=== PATIENT | female | born 1995 | race Caucasian/White ===

== ENCOUNTER 2021-03-14 14:04 | Outpatient (REF) | payer OTHER, SELFPAY | END 2021-03-14 14:05 | disposition home or self-care (01) | LOC: HO.LNP 14:04 | PROVIDERS: Visit Provider Hospitalist | DX: Z20.822 Contact with and (suspected) exposure to COVID-19 (principal); J01.90 Acute sinusitis, unspecified | CPT/HCPCS: U0003; U0005 ==

== ENCOUNTER 2021-11-22 20:10 | Emergency (ER) | payer OTHER, SELFPAY ==
--- NOTE | ~2021-11-22 | XR_ITS ---
EXAMINATION: XR knee RT 4V CLINICAL INFORMATION: Pain COMPARISON: None TECHNIQUE: 4 views of the knee XR/XR knee RT 4V FINDINGS/IMPRESSION: No acute fracture or dislocation. Joint spaces are maintained. No joint effusion. Soft tissues are unremarkable.
[2021-11-22 20:49] VITALS: BP 146/46; PULSE 100; RESP 18; TEMP 36.4; O2SAT 98; BMI 46.7
--- NOTE | 2021-11-22 22:56 | ED_ITS ---
HPI - General Adult General Chief complaint: Extremity Injury, Lower Stated complaint: right knee swollen and painful Time Seen by Provider: 11/22/21 21:47 Source: patient Mode of arrival: ambulatory Limitations: no limitations History of Present Illness HPI narrative: 26 yold female with pmh of ACL tear of right knee presents to the ED for right knee pain. patient states she was reaching for somehting over the couch and heard something pop in her right knee and has flora unable to bear weight. patient denies falling to the ground or any direc contact trauma to knee Related Data Previous Rx's Medication Instructions Recorded azithromycin 500 mg tablet 500 mg PO DAILY 5 Days #5 tab 03/14/21 prednisone 20 mg tablet 20 mg PO .COMPLEX #18 tab 03/14/21 ketorolac 10 mg tablet 10 mg PO Q6H 5 Days #20 tab 11/22/21 prednisone 20 mg tablet 40 mg PO DAILY 5 Days #10 tab 11/22/21 Allergies Allergy/AdvReac Type Severity Reaction Status Date / Time cefazolin [CEFAZOLIN] Allergy Unknown RASH Verified 11/22/21 23:08 ciprofloxacin [From CIPRO] Allergy Unknown RASH Verified 11/22/21 23:08 Sulfa (Sulfonamide Allergy Unknown RASH Verified 11/22/21 23:08 Antibiotics) [SULFA (SULFONAMIDE ANTIBIOTICS)] lactose [LACTOSE] AdvReac Unknown STOMACH Verified 11/22/21 23:08 UPSET NSAIDS (Non-Steroidal AdvReac Unknown GI DISTRESS Verified 11/22/21 23:08 Anti-Inflamma [NSAIDS (NON-STEROIDAL ANTI-INFLAMMA] From AUGMENTIN Allergy Intermediate RASH Uncoded 08/31/21 13:40 Cefzil Allergy Unknown Rash Uncoded 11/22/21 23:08 Vantin Allergy Unknown Rash Uncoded 11/22/21 23:08 Review of Systems Review of Systems: Right knee pain. heard pop in knee Yes all other systems are reviewed and are negative [facility] Past Medical History Medical History (Updated 11/22/21 @ 23:35 by HAILEE Titus) No known health problems Surgical History (Updated 11/22/21 @ 20:51 by Harper Guerrero) No history of previous surgery Social History Social History (System 08/31/21 @ 13:40 by Estelle Nathan) Advance Directives: No Patient : No Physical Exam ED Vital Signs: Vital Signs - 24 hr 11/22/21 20:49 Temperature 97.6 F Pulse Rate 100 Respiratory Rate 18 Blood Pressure 146/46 H Pulse Oximetry 98 BMI result Body Mass Index 46.7 Const General: cooperative, healthy appearing, comfortable, no acute distress, well developed, alert, awake and Physically active Orientation/consciousness: patient oriented x3 [facility] Head: Yes normal to inspection, Yes No palpable skull fracture present, Yes normocephalic, Yes atraumatic and No abrasion Eyes General: appearance normal, both eyes and all related structures Neck Neck: Yes normal visual inspection, Yes full ROM, Yes no lymphadenopathy, Yes no meningeal signs, Yes trachea midline, Yes supple, No anterior neck swelling and No tender Chest Chest palpation & inspection: normal inspection of the chest and normal palpation of entire chest wall Resp Effort & Inspection: normal respiratory effort and able to speak in complete sentences Auscultation: clear to auscultation bilaterally Cardio Jugular venous distension: no JVD Heart sounds: S1 normal heart sound present and S2 normal heart sound present GI Inspection: Yes normal to inspection and No abdominal wall ecchymosis Palpation (GI): Soft to palpation, not firm, nontender, no guarding and not rigid General: No CVA tenderness and Yes no CVA tenderness Back/Spine/Pelvis Back: no CVA tenderness, No CVA tenderness and No back tenderness Skin General skin exam: no rashes or lesions noted and elasticity normal Neuro General: patient oriented x3, gait normal, no meningeal signs and CN's II-XI intact bilaterally Cranial nerves: Yes CN's II-XII intact bilaterally Extrem General: Yes normal to inspection and Yes full ROM Knee images: 1. Tenderness on palpation. negative for ecchymosis, swelling, deformity, stiffness, or elasticity. Neuro and vascular exam intact of extremity. motor exam limited due knee pain Psych Appearance: grossly normal, well kempt and not disheveled Course Course Course Narrative: Xray ordered Reevaluation(s) Reevaluation #1: Xray normal. patient informed she will need MRI from PCP to evaluate for possible ligament or meniscus tear in the ED. Discharge Plan Discharge Clinical Impression: Knee sprain Patient Disposition: Home, Self-Care Instructions: Knee Sprain (ED), R.I.C.E. Treatment (ED) Additional Instructions: You will need an MRI by primary care provider to rule out Ligament or meniscus tear. Continue using crutches and marleny wrap. Return to the ED for knee/leg swelling, redness, stiffness, calf pain, bluish/black discloration, chest pain, shorntness of breath, fever, chills, or any other concerning symptoms. Prescriptions: New prednisone 20 mg tablet 40 mg PO DAILY 5 Days Qty: 10 0RF ketorolac 10 mg tablet 10 mg PO Q6H 5 Days Qty: 20 0RF Rx Instructions: patient received toradol 30mg IM in the ED. No Action prednisone 20 mg tablet 20 mg PO .COMPLEX Qty: 18 0RF Rx Instructions: 20 mg PO 3 p.o. daily for 3 days followed by 2 p.o. daily for 3 days followed by 1 p.o. daily for 3 days; azithromycin 500 mg tablet 500 mg PO DAILY 5 Days Qty: 5 0RF Stand Alone Forms: Work/School Release Print Language: Azeri
[2021-11-22] MEDS: predniSONE 20 MG TABLET 60 MG PO (23:09)
[2021-11-22] MEDS: Ketorolac Tromethamine 30 MG/ML VIAL IM (23:09)
== END 2021-11-23 00:02 | disposition home or self-care (01) ==
PROVIDERS: Emergency Provider Internal Medicine
DX: M25.561 Pain in right knee (principal); Z79.899 Other long term (current) drug therapy
CPT/HCPCS: 73564; 96372; 99283; 99284; J1885